=== PATIENT | female | born 1990 | race Caucasian/White ===

== ENCOUNTER → 2017-03-29 | Outpatient (CLI) | payer OTHER ==
[~2017-03-29] MED LIST: ACET50TA PO; ACET65TA; IBUP60TA PO; No Historical Meds; PRENTAB16 PO; VICO5TAB
[2017-03-29 18:00] LABS: BASO % 0.2 % (0.0-1.0); EOS # 0.1 K/mm3 (0.0-0.50); EOS % 1.1 % (0.0-3.0); LARGE UNSTAINED CELL # 0.1 K/mm3 (0.0-0.4); LARGE UNSTAINED CELL % 2.3 % (0.0-4.0); LYMPH # 1.9 K/mm3 (1.5-6.5); LYMPH % 30.6 % (24.0-44.0); MEAN CORPUSCULAR HEMOGLOBIN 29.9 pg (27.0-33.0); MEAN CORPUSCULAR HGB CONC 33.7 g/dl (32.0-36.5); MEAN CORPUSCULAR VOLUME 88.6 fl (80.0-96.0); MONO # 0.5 K/mm3 (0.0-0.8); MONO % 7.6 % (0.0-5.0); NEUTROPHILS # 3.6 K/mm3 (1.8-7.7); NEUTROPHILS % 58.1 % (36.0-66.0); PLATELET COUNT, AUTOMATED 301 k/mm3 (150-450); RED CELL DISTRIBUTION WIDTH 12.4 % (11.5-14.5); WHITE BLOOD COUNT 6.2 K/mm3 (4.0-10.0)
[2017-03-30 10:46] LABS: HBsAg Prenatal NEGATIVE (NEGATIVE)
== END ==
LOC: M SMT 13:45
PROVIDERS: ATTEND Obstetrics & Gynecology
DX: Z34.81 Encounter for supervision of other normal pregnancy, first trimester (principal)

== ENCOUNTER → 2017-07-11 | Outpatient (CLI) | payer OTHER ==
[~2017-07-11] MED LIST changes: +AUGM875T28 PO; +PERC5TAB12 PO; +PRENTAB55 PO
--- NOTE | 2017-07-11 14:23 | REP ---
Obstetric ultrasound for anatomy: There is a single intrauterine gestation in a breech presentation. There is movement and cardiac activity. The heart rate is 141 beats per minute. The placenta is anterior. There is no placenta previa or abruptio. Placenta is grade zero. The amniotic fluid volume subjectively is low. Cervix measures 4.5 cm. Maternal adnexa and cul-de-sac are unremarkable. By today's ultrasound the gestational age is 19 weeks 6 days with an SOSA of 11/29/2017. The LMP is unknown. weight is 337 grams (0 pounds, 11 ounces). This is the 58th percentile for 19 weeks 6 days. Following anatomic structures are identified and are unremarkable: Cranium, choroid plexus, cavum septum some, cerebellum/posterior fossa, facial profile, face, upper lip, lungs, four-chamber heart, cardiac right and left ventricular outflow tracts, diaphragm, stomach, cord insertion, three-vessel cord, kidneys, bladder, spine and upper lower extremities. No anomalies are identified Signed by Faheem Dubon MD 07/11/2017 10:43 A
== END ==
LOC: M SMT 09:26
PROVIDERS: ATTEND Obstetrics & Gynecology
DX: Z36 Encounter for antenatal screening of mother (principal); Z3A.19 19 weeks gestation of pregnancy

== ENCOUNTER → 2017-10-26 | Outpatient (REF) | payer OTHER | LOC: M LAB REF 17:17 | DX: Z34.83 Encounter for supervision of other normal pregnancy, third trimester (principal); Z36.85 Encounter for antenatal screening for Streptococcus B | CPT/HCPCS: 87081 ==

== ENCOUNTER 2017-11-28 21:00 | Inpatient (IN) | payer OTHER ==
[2017-11-28] MEDS: BUTORPHANOL 2 MG/ML INJ (J0595) IV (21:57)
[2017-11-28] MEDS: PROMETHAZINE INJ 25 MG/ML VIAL (J2550) IV (21:57)
[2017-11-28 22:02] LABS: HEMATOCRIT 30.7 % (36.0-47.0); HEMOGLOBIN 10.7 g/dl (12.0-16.0); MEAN CORPUSCULAR HEMOGLOBIN 30.1 pg (27.0-33.0); MEAN CORPUSCULAR HGB CONC 34.9 g/dl (32.0-36.5); MEAN CORPUSCULAR VOLUME 86.2 fl (80.0-96.0); PLATELET COUNT, AUTOMATED 249 10^3/uL (150-450); RED BLOOD COUNT 3.56 10^6/uL (4.00-5.40); RED CELL DISTRIBUTION WIDTH 12.8 % (11.5-14.5); WHITE BLOOD COUNT 13.9 10^3/uL (4.0-10.0)
[2017-11-28 22:22] LABS: AMPHETAMINES URINE REFLEX NEGATIVE (NEGATIVE); BARBITURATES URINE REFLEX NEGATIVE (NEGATIVE); BENZODIAZEPINES URINE REFLEX NEGATIVE (NEGATIVE); CANNABINOIDS URINE REFLEX NEGATIVE (NEGATIVE); COCAINE METABOLITE URINE REFLE NEGATIVE (NEGATIVE); METHADONE URINE REFLEX NEGATIVE (NEGATIVE); OPIATES URINE REFLEX NEGATIVE (NEGATIVE); PHENCYCLIDINE URINE REFLEX NEGATIVE (NEGATIVE)
[2017-11-28] MEDS ORDERED: OXYTOCIN 30 UNITS IN 0.9% NaCl 500ML IV BAG (J2590) As Ordered (23:45)
[2017-11-29] MEDS: OXYTOCIN DRIP 30 UNITS in APPROPRIATE DILUENT 1 EA IV (00:59)
[2017-11-29] MEDS ORDERED: DIBUCAINE 1% OINTMENT 30GM TOP (01:00)
[2017-11-29] MEDS ORDERED: METHYLERGONOVINE MALEATE 0.2 MG TAB PO (01:00)
[2017-11-29] MEDS: LIDOCAINE 1% MDV INJ 50 ML VIAL INFIL (01:15)
[2017-11-29] MEDS: ACETAMINOPHEN 500 MG TAB PO ×3 (02:10→19:44)
[2017-11-29] MEDS: DOCUSATE SODIUM 100 MG CAP PO (05:20)
[2017-11-29] MEDS: IBUPROFEN 800 MG TAB PO ×2 (05:21→14:30)
[2017-11-29] MEDS: PRENATAL VITAMINS CHEWABLE TABLET PO (07:47)
[2017-11-30] MEDS: IBUPROFEN 800 MG TAB PO (05:00)
[2017-11-30] MEDS: PRENATAL VITAMINS CHEWABLE TABLET PO (07:51)
[2017-11-30] MEDS: INFLUENZA QUADRIVALENT PF VACCINE 0.5ML SYRINGE (90686) IM (07:52)
[2017-11-30] MEDS: MEASLES,MUMPS,RUBELLA VACCINE INJ (MMR-II) (90707) SC (07:53)
[2017-11-30] MEDS: RHOGAM 300 MCG (1500 IU) INJ (J2790) IM (07:53)
== END 2017-11-30 09:50 | disposition home or self-care (01) | DRG 560 ==
LOC: M LDO 21:00 → M OBS 11-29 02:19 → M LDI 21:30
PROVIDERS: Advanced Practice Midwife
PROC: 10E0XZZ Delivery of Products of Conception, External Approach (ICD-10-PCS; principal; 2017-11-29)
PROC: 0HQ9XZZ Repair Perineum Skin, External Approach (ICD-10-PCS; 2017-11-29)
DX: O48.0 Post-term pregnancy (principal); O70.0 First degree perineal laceration during delivery; Z37.0 Single live birth; Z3A.40 40 weeks gestation of pregnancy

== ENCOUNTER → 2018-04-19 | Outpatient (CLI) | payer OTHER ==
[2018-04-19 13:41] LABS: HEMATOCRIT 38.5 % (36.0-47.0); HEMOGLOBIN 12.6 g/dl (12.0-15.5); MEAN CORPUSCULAR HEMOGLOBIN 28.6 pg (27.0-33.0); MEAN CORPUSCULAR HGB CONC 32.7 g/dl (32.0-36.5); MEAN CORPUSCULAR VOLUME 87.3 fl (80.0-96.0); PLATELET COUNT, AUTOMATED 317 10^3/uL (150-450); RED BLOOD COUNT 4.41 10^6/uL (4.00-5.40)
[2018-04-19 14:07] LABS: ALBUMIN 4.1 GM/DL (3.2-5.2); ALBUMIN/GLOBULIN RATIO 1.37 (1.00-1.93); ALKALINE PHOSPHATASE 66 U/L (45-117); ALT/SGPT 21 U/L (12-78); ANION GAP 7 MEQ/L (8-16); AST/SGOT 17 U/L (7-37); BILIRUBIN,TOTAL 1.2 MG/DL (0.2-1.0); BLOOD UREA NITROGEN 9 MG/DL (7-18); CALCIUM LEVEL 8.9 MG/DL (8.5-10.1); CARBON DIOXIDE LEVEL 27 MEQ/L (21-32); CHLORIDE LEVEL 105 MEQ/L (98-107); CHOLESTEROL LEVEL 161 MG/DL (<200); CHOLESTEROL RISK RATIO 2.555 (<5); CREATININE FOR GFR 0.84 MG/DL (0.55-1.30); GLOMERULAR FILTRATION RATE > 60.0 (>60); GLUCOSE, FASTING 86 MG/DL (70-100); HDL CHOLESTEROL 63 MG/DL (>40); LDL CHOLESTEROL 80.2 MG/DL (<100); NON-HDL-C 98 MG/DL; POTASSIUM SERUM 4.7 MEQ/L (3.5-5.1); SODIUM LEVEL 139 MEQ/L (136-145); TOTAL PROTEIN 7.1 GM/DL (6.4-8.2); TRIGLYCERIDES LEVEL 89 MG/DL (<150)
== END ==
LOC: M SMT 09:39
DX: G44.89 Other headache syndrome (principal); E66.3 Overweight
CPT/HCPCS: 84443

== ENCOUNTER → 2018-08-01 | Outpatient (REF) | payer OTHER | LOC: M LAB REF 21:42 | DX: R21 Rash and other nonspecific skin eruption (principal) ==

== ENCOUNTER → 2018-08-21 | Outpatient (REF) | payer OTHER | LOC: M LAB REF 19:03 | DX: Z12.4 Encounter for screening for malignant neoplasm of cervix (principal) ==

== ENCOUNTER → 2018-12-21 | Outpatient (CLI) | payer OTHER ==
[~2018-12-21] MED LIST changes: -ACET50TA PO; +DULO1CAP3 PO; +IBUP-1114 PO; +MAPA500T2 PO
[2018-12-21 13:31] LABS: BASO % 0.6 % (0.0-1.0); EOS # 0.2 10^3/uL (0.0-0.50); EOS % 2.7 % (0.0-3.0); HEMATOCRIT 39.4 % (36.0-47.0); HEMOGLOBIN 12.9 g/dl (12.0-15.5); LYMPH # 1.6 10^3/uL (1.5-6.5); LYMPH % 22.7 % (24.0-44.0); MEAN CORPUSCULAR HEMOGLOBIN 29.7 pg (27.0-33.0); MEAN CORPUSCULAR HGB CONC 32.7 g/dl (32.0-36.5); MEAN CORPUSCULAR VOLUME 90.8 fl (80.0-96.0); MONO # 0.7 10^3/uL (0.0-0.8); MONO % 9.6 % (0.0-5.0); NEUTROPHILS # 4.5 10^3/uL (1.8-7.7); PLATELET COUNT, AUTOMATED 292 10^3/uL (150-450); RED BLOOD COUNT 4.34 10^6/uL (4.00-5.40); WHITE BLOOD COUNT 7.1 10^3/uL (4.0-10.0)
[2018-12-21 14:12] LABS: BLOOD UREA NITROGEN 11 MG/DL (7-18); CARBON DIOXIDE LEVEL 28 MEQ/L (21-32); CHLORIDE LEVEL 104 MEQ/L (98-107); CREATININE FOR GFR 0.76 MG/DL (0.55-1.30); GLOMERULAR FILTRATION RATE > 60.0 (>60); GLUCOSE, FASTING 66 MG/DL (70-100); POTASSIUM SERUM 4.4 MEQ/L (3.5-5.1); SODIUM LEVEL 139 MEQ/L (136-145)
== END ==
LOC: M SMT 11:28
PROVIDERS: ATTEND Podiatrist
DX: M72.2 Plantar fascial fibromatosis (principal); M79.672 Pain in left foot

== ENCOUNTER 2018-12-29 09:19 | Day surgery (SDC) | payer OTHER ==
[~2018-12-29] VITALS: Ht 170.2 cm; Wt 72.6 kg
[~2018-12-29 09:19] MED LIST changes: +KETOROLAC 60 MG/2 ML VIAL (J1885) As Ordered ONE; +LIDOCAINE 2% INJ 100 MG/5 ML SDV (FOR ANES.) As Ordered ONE; +LR 1,000 ML IV ONE; +MIDAZOLAM INJ 2 MG/2 ML VIAL (J2250) As Ordered ONE; +ONDANSETRON 4MG/2ML VIAL (J2405) As Ordered ONE; +PROPOFOL 200 MG/20 ML VIAL As Ordered ONE; +fentaNYL 100 MCG/2 ML INJECTION (J3010) As Ordered ONE
[2018-12-29 10:14] LABS: URINE PREG TEST NEGATIVE (NEGATIVE)
[2018-12-29] MEDS ORDERED: KETAMINE HCL 200 MG/20 ML VIAL As Ordered ONE (11:48)
[2018-12-29] MEDS ORDERED: BUPIVACAINE HCL 0.5% 30 ML VIAL As Ordered ONE (12:13)
[2018-12-29] MEDS ORDERED: dexameTHASONE 4 MG/ML 1ML VIAL (J1100) As Ordered ONE (12:13)
[2018-12-29] MEDS ORDERED: LIDOCAINE 2% MDV 20 ML VIAL As Ordered ONE (12:13)
[2018-12-29] MEDS ORDERED: BACITRACIN PWD 50,000 UNITS VIAL As Ordered ONE (12:14)
[2018-12-29] MEDS ORDERED: NEOSPORIN GU IRRIG 20 ML VIAL As Ordered ONE (12:14)
[2018-12-29] MEDS ORDERED: GLYCOPYRROLATE INJ 0.2 MG/ML 2 ML VIAL As Ordered ONE (13:58)
[2018-12-29 14:45] VITALS: BP 104/66
--- NOTE | 2018-12-29 16:35 | RO ---
DATE OF PROCEDURE: 12/29/2018 PREOPERATIVE DIAGNOSIS: Plantar fasciitis, left foot. POSTOPERATIVE DIAGNOSIS: Plantar fasciitis, left foot. PROCEDURE: Endoscopic plantar fasciotomy left foot. SURGEON: Alexey Hernandez DPM HIRED HELP: None. ANESTHESIA: Local, monitored anesthesia care (MAC). IRRIGATION: Dilute bacitracin, neomycin and polymyxin B solution. HEMOSTASIS: Ankle pneumatic tourniquet at 250 mmHg for 14 minutes. DESCRIPTION OF PROCEDURE: On 12/29/2018, this 28-year-old white female was taken from her hospital room to the operating room and placed on the operating room table in a supine position. Following the induction of IV sedation, local and regional anesthesia, the left lower extremity was prepped and draped in the usual aseptic manner. Ankle pneumatic tourniquet inflated and attention was directed to the medial surface of the foot where a 5 cm vertical incision was placed just distal to the medial tuberosity of the calcaneus on the medial side of the foot. Utilizing dissection scissors a tunnel was created inferior to the plantar fascia. This was distended utilizing tissue distenders an endoscopic center lined scope with plantar fasciectomy blade was then entered into the tunnel with the scope pointing in a superior direction. The plantar fascia was visualized, 3/4 of the plantar fascia was then transected under direct visualization. The wound was flushed with copious amounts of dilute bacitracin, neomycin and polymyxin B solution when the scope was removed. This was then sutured with 4-0 Vicryl in a simple interrupted type fashion and skin tissue was copated maintained using 4-0 Prolene in a horizontal mattress type fashion. Following the completion of the surgical procedure, 4 mg of dexamethasone sodium phosphate and a half mL of 0.5% Marcaine was instilled into the wound. Attention was directed towards bandaging where a sterile compressive bandage was applied consisting of Adaptic, 4x4s, 4x4 splints, Mayi and Coban. The ankle pneumatic tourniquet was deflated and instantaneous capillary filling time was noted in digits 1-5 of the patients left foot. The patient having apparently tolerated the surgical procedure well was taken from the operating room (OR) to the recovery room for further monitoring by the anesthesia department. Postoperative instructions will be given upon discharge.
== END 2018-12-29 14:50 | disposition home or self-care (01) ==
LOC: M SDC 09:19
PROVIDERS: ATTEND Podiatrist
DX: M72.2 Plantar fascial fibromatosis (principal); M79.672 Pain in left foot; F32.9 Major depressive disorder, single episode, unspecified; Z79.899 Other long term (current) drug therapy
CPT/HCPCS: 29893; 84703; J0690; J1100; J1885; J2250; J2405; J3010

== ENCOUNTER → 2019-07-11 | Outpatient (CLI) | payer OTHER ==
[~2019-07-11] MED LIST changes: -DULO1CAP3 PO; +DULO1CAP6 PO; +IBUP600T42 PO; -IBUP60TA PO; -KETOROLAC 60 MG/2 ML VIAL (J1885) As Ordered ONE; -LIDOCAINE 2% INJ 100 MG/5 ML SDV (FOR ANES.) As Ordered ONE; -LR 1,000 ML IV ONE; -MIDAZOLAM INJ 2 MG/2 ML VIAL (J2250) As Ordered ONE; -ONDANSETRON 4MG/2ML VIAL (J2405) As Ordered ONE; -PROPOFOL 200 MG/20 ML VIAL As Ordered ONE; -fentaNYL 100 MCG/2 ML INJECTION (J3010) As Ordered ONE
--- NOTE | 2019-07-12 06:27 | REP ---
Clinical: Pelvic and perineal pain . Technique: Transabdominal pelvic ultrasound followed by transvaginal examination for better evaluation of the endometrium and adnexa with color Doppler evaluation of the ovaries. Findings: Bladder is unremarkable and measures 12.0 x 9.0 x 5.0 cm . Anteverted uterus measures 9.1 x 3.9 x 5.1 cm . The endometrial complex is thickened to 13.6 mm which may be secondary to menstrual cycle. No discrete uterine or endometrial abnormalities are appreciated. Bilateral ovaries are normal in appearance and vascularity without evidence for torsion. Right ovary measures 3.3 x 2.9 x 3.6 cm with 1.9 cm likely physiologic cyst; R I = 0.51 . Left ovary measures 2.5 x 1.7 x 2.4 cm; R I = 0.54 . No pelvic free fluid or adnexal mass lesion. Impression: 1. The endometrial complex likely related to menstrual cycle. 2. 1.9 cm right ovarian cyst likely physiologic. Electronically Signed by Honorio Ivey MD 07/12/2019 06:19 A
== END ==
LOC: M RAD 17:19
PROVIDERS: ATTEND Advanced Practice Midwife
DX: R10.2 Pelvic and perineal pain (principal)

== ENCOUNTER → 2019-08-24 | Outpatient (REF) | payer OTHER | LOC: M LAB REF 10:31 | PROVIDERS: ATTEND Advanced Practice Midwife | DX: Z12.4 Encounter for screening for malignant neoplasm of cervix (principal) ==

== ENCOUNTER → 2020-06-23 | Outpatient (REF) | payer OTHER | LOC: M LAB REF 10:22 | PROVIDERS: ATTEND Physician Assistant Medical | DX: Z01.812 Encounter for preprocedural laboratory examination (principal); Z20.828 Contact with and (suspected) exposure to other viral communicable diseases ==

== ENCOUNTER → 2021-02-04 | Outpatient (REF) | payer OTHER | LOC: M SFHCWAGY 12:46 | PROVIDERS: ATTEND Nurse Practitioner Women's Health | DX: Z12.4 Encounter for screening for malignant neoplasm of cervix (principal) ==

== ENCOUNTER → 2021-07-01 | Outpatient (REF) | payer OTHER | LOC: M PLALAB 10:13 | PROVIDERS: ATTEND Nurse Practitioner Women's Health | DX: Z11.3 Encounter for screening for infections with a predominantly sexual mode of transmission (principal); Z53.9 Procedure and treatment not carried out, unspecified reason ==

== ENCOUNTER → 2021-12-22 | Outpatient (CLI) | payer OTHER | LOC: M WHC 10:58 | PROVIDERS: ATTEND Obstetrics & Gynecology | DX: R92.2 Inconclusive mammogram (principal) | CPT/HCPCS: 76642; 77065; G0279 ==

== ENCOUNTER → 2025-05-14 | Outpatient (REF) | payer OTHER ==
[2025-05-16 14:08] LABS: HPV APTIMA Not Detected (Not Detected)
== END ==
LOC: M SFHCWAGY 13:12
PROVIDERS: ATTEND Nurse Practitioner Family
DX: Z12.4 Encounter for screening for malignant neoplasm of cervix (principal)
CPT/HCPCS: 87624; G0123